=== PATIENT | male | born 1940 | race Caucasian/White ===

== ENCOUNTER → 2018-05-07 | Outpatient (CLI) | payer MEDICARE | END | disposition home or self-care (01) | LOC: SHCH 10:00 | PROVIDERS: ATTEND Internal Medicine Cardiovascular Disease | DX: I73.9 Peripheral vascular disease, unspecified (principal) | CPT/HCPCS: 93925 ==

== ENCOUNTER 2021-03-03 09:00 | Inpatient (IN) | payer MEDICARE ==
[~2021-03-03] VITALS: Ht 175.3 cm; Wt 93.2 kg
[2021-03-03 11:30] LABS: BASOPHILS % (AUTO) 0.4 % (0.0-5.0); HEMATOCRIT 36.8 % (42-54); MEAN CORPUSCULAR HEMOGLOBIN 31.6 pg (27.0-33.0); MEAN CORPUSCULAR VOLUME 92.9 fL (79-99); NEUTROPHILS % (AUTO) 69.3 % (40.0-77.0); PLATELET COUNT (AUTO) 173 K/uL (130-400); RED BLOOD CELL COUNT(AUTO) 3.96 MIL/uL (4.50-6.20); RED CELL DISTRIBUTION WIDTH 12.2 % (11.0-15.5); WHITE BLOOD COUNT (AUTO) 6.8 K/uL (4.8-10.8)
[2021-03-03 11:32] LABS: APPEARANCE,URINE CLEAR (CLEAR); BILIRUBIN,URINE NEGATIVE (NEGATIVE); COLOR,URINE YELLOW (YELLOW); GLUCOSE, URINE (UA) NEGATIVE (NEGATIVE); KETONES,URINE 5 mg/dL (NEGATIVE); LEUKOCYTE ESTERASE ,URINE NEGATIVE (NEGATIVE); NITRATE,URINE NEGATIVE (NEGATIVE); OCCULT BLOOD,URINE NEGATIVE (NEGATIVE); PH,URINE 5.5 (5.0-8.0); PROTEIN,URINE NEGATIVE (NEGATIVE); UROBILINOGEN,URINE 0.2 mg/dL (0.2-1.0)
[2021-03-03 11:40] LABS: CREATININE 1.4 mg/dL (0.5-1.5); POTASSIUM 4.6 mmol/L (3.5-5.1)
[2021-03-03 11:50] LABS: BACTERIA,URINE Rare /HPF (None Seen); RBC,URINE 0-1 /HPF (0-1); SQUAMOUS EPITHELIAL CELL,UR Rare /HPF (0-2); WBC,URINE 0-1 /HPF (0-1); YEAST,URINE BUDDING Rare /HPF (None Seen)
[2021-03-03 11:51] LABS: INR 0.99 (0.85-1.15); PROTHROMBIN TIME 10.8 SEC (9.6-11.6)
[2021-03-04 09:08] VITALS: BP 158/82
[2021-03-04] MEDS ORDERED: LISI10TA24 PO (10:08)
[2021-03-04] MEDS ORDERED: LOVA20TA3 PO (10:08)
[2021-03-04] MEDS ORDERED: METF-446 PO (10:08)
[2021-03-04] MEDS ORDERED: DICY20TA3 PO (10:08)
[2021-03-04] MEDS ORDERED: PROP80TA4 PO (10:08)
[2021-03-04] MEDS ORDERED: NAPR-1023 PO (10:08)
[2021-03-04] MEDS ORDERED: TRAM50TA4 PO (10:08)
[2021-03-04] MEDS ORDERED: ESOM40CA54 PO (10:08)
[2021-03-04] MEDS ORDERED: SENNA PO (10:08)
[2021-03-04] MEDS ORDERED: GABA300C PO (10:08)
[2021-03-04] MEDS ORDERED: SITA100T12 PO (10:08)
[2021-03-04] MEDS ORDERED: GLIP10TA9 PO (10:08)
[2021-03-07] VITALS (24 sets, daily range): BP systolic 111–141; BP diastolic 45–75
[2021-03-07] MEDS ORDERED: 0.9%NACL 1000ML 1,000 ML IV ONE (08:10)
[2021-03-07] MEDS: CEFAZOLIN SODIUM 1 GM VIAL IVP ONE ×2 (08:57→11:00)
[2021-03-07] MEDS ORDERED: LIDOCAINE PF 100MG/5ML (2%) SYRINGE 5ML ONE (09:43)
[2021-03-07] MEDS ORDERED: SUCCINYLCHOLINE CHLORIDE 20 MG/ML 10 ML VIAL ONE (09:43)
[2021-03-07] MEDS ORDERED: ROCURONIUM 10MG/1ML SYR 10 MG/ML ML ONE ×2 (09:43→11:53)
[2021-03-07] MEDS ORDERED: PROPOFOL 10 MG/ML 20ML VIAL IV ONE (09:43)
[2021-03-07] MEDS ORDERED: ACETAMINOPHEN 500 MG TABLET ONE (09:53)
[2021-03-07] MEDS ORDERED: KETOROLAC 15MG/ML VIAL (15MG/ML) ONE (09:53)
[2021-03-07] MEDS ORDERED: CELECOXIB 200 MG CAP ONE (09:54)
[2021-03-07] MEDS ORDERED: TRANEXAMIC ACID 1000MG/10ML ONE ×2 (10:36→13:37)
[2021-03-07] MEDS ORDERED: CEFAZOLIN SODIUM 1 GM VIAL ONE (10:36)
[2021-03-07] MEDS ORDERED: PHENYLEPHRINE HCL 10 MG/ML 1ML VIAL IV ONE (10:50)
[2021-03-07] MEDS ORDERED: GLYCOPYRROLATE 1 MG/5 ML SYRINGE ONE (11:05)
[2021-03-07] MEDS ORDERED: NEOSTIGMINE 5MG/5ML SYR IV ONE (11:05)
[2021-03-07] MEDS ORDERED: ONDANSETRON 4MG INJ ONE (12:52)
[2021-03-07] MEDS ORDERED: TEMAZEPAM 15 MG CAPSULE PO PRN (13:30)
[2021-03-07] MEDS ORDERED: CALCIUM CARB 500MG PO PRN (13:30)
[2021-03-07] MEDS: 0.9%NACL 1000ML 1,000 ML IV SCH ×2 (13:30→23:57)
[2021-03-07] MEDS ORDERED: POTASSIUM CHLORIDE 20MEQ/100ML 100 ML IV PRN (13:30)
[2021-03-07] MEDS ORDERED: DiphenhydrAMINE HCL 50 MG/ML VIAL IVP PRN (13:30)
[2021-03-07] MEDS ORDERED: LIDOCAINE HCL-MPF 1% 2ML VIAL IV PRN (13:30)
[2021-03-07] MEDS ORDERED: POTASSIUM CHLORIDE 10% ELIXIR 20 MEQ/15 ML UDCUP PO PRN (13:30)
[2021-03-07] MEDS ORDERED: FERROUS FUMARATE 324 MG TABLET PO PRN (13:30)
[2021-03-07] MEDS ORDERED: KCL 20 MEQ ERTAB PO PRN (13:30)
[2021-03-07] MEDS ORDERED: KETOROLAC 15MG/ML VIAL (15MG/ML) IV PRN (13:30)
[2021-03-07] MEDS ORDERED: ONDANSETRON 4MG INJ IVP PRN (13:30)
[2021-03-07] MEDS ORDERED: TRAMADOL HCL 50 MG TABLET PO PRN (13:30)
[2021-03-07] MEDS: ACETAMINOPHEN 500 MG TABLET PO SCH ×2 (13:30→21:22)
[2021-03-07] MEDS: OXYCODONE HCL 5 MG TAB PO PRN ×2 (16:22→23:56)
[2021-03-07] MEDS: INSULIN HUMULIN R 100 UNIT/ML 3ML SQ SCH ×2 (16:23→21:00)
[2021-03-07] MEDS: CEFAZOLIN SODIUM 1 GM VIAL IVP SCH (18:45)
[2021-03-07] MEDS ORDERED: DICYCLOMINE HCL 20 MG TAB PO PRN (20:15)
[2021-03-07] MEDS ORDERED: NON-FORMULARY MEDICATION 1 EACH (Metformin HCl 1,000 MG) PO SCH (21:00)
[2021-03-07] MEDS ORDERED: PROPRANOLOL HCL 80 MG PO SCH (21:00)
[2021-03-07] MEDS ORDERED: SENNA PO SCH (21:00)
[2021-03-07] MEDS: SENNA PO SCH (21:00)
[2021-03-07] MEDS: LOVASTATIN 20 MG PO SCH (21:00)
[2021-03-07] MEDS ORDERED: NON-FORMULARY MEDICATION 1 EACH (Glipizide 10 MG) PO SCH (21:00)
[2021-03-07] MEDS ORDERED: NON-FORMULARY MEDICATION 1 EACH (Lovastatin 20 MG) PO SCH (21:00)
[2021-03-07] MEDS: LISINOPRIL 10 MG TABLET PO SCH (21:22)
[2021-03-07] MEDS: GLIPIZIDE 5 MG TABLET PO SCH (21:23)
[2021-03-07] MEDS: ASPIRIN 81MG CHEW TAB PO SCH (21:24)
[2021-03-07] MEDS: CELECOXIB 200 MG CAP PO SCH (21:24)
[2021-03-07] MEDS: GABAPENTIN 300 MG CAPSULE PO SCH (21:25)
[2021-03-07] MEDS: PROPRANOLOL HCL 20 MG TAB PO SCH (21:25)
[2021-03-07] MEDS: TRAMADOL HCL 50 MG TABLET PO SCH (21:26)
[2021-03-08] MEDS: CEFAZOLIN SODIUM 1 GM VIAL IVP SCH (03:36)
[2021-03-08 03:46] VITALS: BP 118/66
[2021-03-08 04:23] LABS: HEMATOCRIT 26.7 % (42-54); MEAN CORPUSCULAR HEMOGLOBIN 32.5 pg (27.0-33.0); MEAN CORPUSCULAR HGB CONC 35.2 g/dL (32.0-36.0); MEAN CORPUSCULAR VOLUME 92.4 fL (79-99); RED BLOOD CELL COUNT(AUTO) 2.89 MIL/uL (4.50-6.20); RED CELL DISTRIBUTION WIDTH 12.2 % (11.0-15.5); WHITE BLOOD COUNT (AUTO) 8.2 K/uL (4.8-10.8)
[2021-03-08 04:31] LABS: CREATININE 1.6 mg/dL (0.5-1.5); POTASSIUM 4.2 mmol/L (3.5-5.1)
[2021-03-08] MEDS: INSULIN HUMULIN R 100 UNIT/ML 3ML SQ SCH ×4 (06:07→21:43)
[2021-03-08] MEDS: ACETAMINOPHEN 500 MG TABLET PO SCH ×3 (06:11→21:35)
[2021-03-08] MEDS: OXYCODONE HCL 5 MG TAB PO PRN ×3 (06:13→18:06)
[2021-03-08 07:00] VITALS: BP 113/61
[2021-03-08] MEDS: 0.9%NACL 1000ML 1,000 ML IV SCH (07:31)
[2021-03-08] MEDS: TRAMADOL HCL 50 MG TABLET PO SCH ×2 (07:32→21:35)
[2021-03-08] MEDS: POLYETHYLENE GLYCOL 3350 17 GM POWD.PACK PO SCH (08:42)
[2021-03-08] MEDS: PANTOPRAZOLE 40 MG TAB DR PO SCH (08:42)
[2021-03-08] MEDS: METFORMIN HCL 500 MG TABLET PO SCH ×2 (08:42→17:31)
[2021-03-08] MEDS: CELECOXIB 200 MG CAP PO SCH ×2 (08:43→21:34)
[2021-03-08] MEDS: TAMSULOSIN HCL 0.4 MG CAP.ER.24H PO SCH (08:43)
[2021-03-08] MEDS: ASPIRIN 81MG CHEW TAB PO SCH ×2 (08:43→21:36)
[2021-03-08] MEDS: GLIPIZIDE 5 MG TABLET PO SCH ×2 (08:44→21:36)
[2021-03-08] MEDS ORDERED: NON-FORMULARY MEDICATION 1 EACH (Esomeprazole Magnesium 40 MG) PO SCH (09:00)
[2021-03-08] MEDS ORDERED: NON-FORMULARY MEDICATION 1 EACH (Sitagliptin Phosphate (Januvia) 100 MG) PO SCH (09:00)
[2021-03-08 13:08] VITALS: BP 121/74
[2021-03-08 16:53] VITALS: BP 135/89
[2021-03-08 19:53] VITALS: BP 129/80
[2021-03-08] MEDS: SENNA PO SCH (21:00)
[2021-03-08] MEDS: LOVASTATIN 20 MG PO SCH (21:00)
[2021-03-08] MEDS: LISINOPRIL 10 MG TABLET PO SCH (21:35)
[2021-03-08] MEDS: GABAPENTIN 300 MG CAPSULE PO SCH (21:35)
[2021-03-08] MEDS: PROPRANOLOL HCL 20 MG TAB PO SCH (21:36)
[2021-03-09 00:06] VITALS: BP 141/75
[2021-03-09 04:06] VITALS: BP 140/80
[2021-03-09] MEDS: INSULIN HUMULIN R 100 UNIT/ML 3ML SQ SCH ×3 (05:56→16:30)
[2021-03-09] MEDS: ACETAMINOPHEN 500 MG TABLET PO SCH ×2 (05:57→13:03)
[2021-03-09] MEDS: OXYCODONE HCL 5 MG TAB PO PRN ×2 (07:34→13:02)
[2021-03-09] MEDS: METFORMIN HCL 500 MG TABLET PO SCH ×2 (07:34→16:43)
[2021-03-09] MEDS ORDERED: BISACODYL 10 MG SUPP.RECT RC SCH (07:45)
[2021-03-09] MEDS ORDERED: CALCIUM CARB 500MG CHEW TAB PO SCH (07:45)
[2021-03-09 07:52] VITALS: BP 143/75
[2021-03-09] MEDS ORDERED: MAG/ALUM/SIMETH 30 ML UDCUP ONE (08:54)
[2021-03-09] MEDS ORDERED: MAG/ALUM/SIMETH 30 ML UDCUP PO SCH (09:00)
[2021-03-09] MEDS: TRAMADOL HCL 50 MG TABLET PO SCH (09:00)
[2021-03-09] MEDS: PANTOPRAZOLE 40 MG TAB DR PO SCH (09:01)
[2021-03-09] MEDS: ASPIRIN 81MG CHEW TAB PO SCH (09:01)
[2021-03-09] MEDS: CELECOXIB 200 MG CAP PO SCH (09:01)
[2021-03-09] MEDS: POLYETHYLENE GLYCOL 3350 17 GM POWD.PACK PO SCH (09:02)
[2021-03-09] MEDS: TAMSULOSIN HCL 0.4 MG CAP.ER.24H PO SCH (09:02)
[2021-03-09] MEDS: GLIPIZIDE 5 MG TABLET PO SCH ×2 (09:02→16:42)
[2021-03-09 11:46] VITALS: BP 133/84
[2021-03-09 16:15] VITALS: BP 129/69
[2021-03-09] MEDS ORDERED: ASPI-1005 PO (17:27)
[2021-03-09] MEDS ORDERED: HYDR-4060 PO (17:27)
[2021-03-10] MEDS ORDERED: BISACODYL 10 MG SUPP.RECT RC PRN (13:30)
== END 2021-03-09 18:45 | disposition home health service (06) | DRG 470 ==
LOC: EDSTATUS 09:00 → OBSVTOIN 03-07 07:22 → INTOOBSV 03-07 07:22 → DAHIP 03-07 07:22 → 4AH 03-07 14:31
PROVIDERS: ADMIT Orthopaedic Surgery; ATTEND Orthopaedic Surgery
PROC: 3E0T33Z Introduction of Anti-inflammatory into Peripheral Nerves and Plexi, Percutaneous Approach (ICD-10-PCS; 2021-03-07)
PROC: 0SRC0J9 Replacement of Right Knee Joint with Synthetic Substitute, Cemented, Open Approach (ICD-10-PCS; principal; 2021-03-07 09:50)
PROC: 3E0T3BZ Introduction of Anesthetic Agent into Peripheral Nerves and Plexi, Percutaneous Approach (ICD-10-PCS; 2021-03-07 09:50)
DX: M17.11 Unilateral primary osteoarthritis, right knee (principal); G89.29 Other chronic pain; E11.9 Type 2 diabetes mellitus without complications; E78.5 Hyperlipidemia, unspecified; I10 Essential (primary) hypertension; D64.9 Anemia, unspecified; R33.9 Retention of urine, unspecified; Z20.822 Contact with and (suspected) exposure to COVID-19; Z96.641 Presence of right artificial hip joint; Z96.652 Presence of left artificial knee joint; N40.0 Benign prostatic hyperplasia without lower urinary tract symptoms; Z80.9 Family history of malignant neoplasm, unspecified
CPT/HCPCS: 36415; 80048; 81001; 82948; 85025; 85027; 85610; 87641; 88305; 88311; 97039; A4344; G0378; J0330; J0690; J1815; J1885; J2001; J2370; J2405; J2704; J2710; J3490; J7030; U0003

== ENCOUNTER → 2023-10-11 | Outpatient (CLI) | payer MEDICARE ==
[~2023-10-11] MED LIST: ASPI-1005 PO; DICY20TA3 PO; ESOM40CA54 PO; GABA300C PO; GLIP10TA9 PO; HYDR-4060 PO; LISI10TA24 PO; LOVA20TA3 PO; METF-446 PO; PROP80TA4 PO; SENNA PO; SITA100T12 PO
== END | disposition home or self-care (01) ==
LOC: RAH 12:05
PROVIDERS: ATTEND Physician Assistant
DX: S69.81XA Other specified injuries of right wrist, hand and finger(s), initial encounter (principal); M25.531 Pain in right wrist; M18.11 Unilateral primary osteoarthritis of first carpometacarpal joint, right hand; X58.XXXA Exposure to other specified factors, initial encounter; Y93.89 Activity, other specified; Y92.89 Other specified places as the place of occurrence of the external cause; Y99.8 Other external cause status
CPT/HCPCS: 73100

== ENCOUNTER → 2024-05-20 | Outpatient (CLI) | payer MEDICARE ==
[~2024-05-20] MED LIST changes: -ESOM40CA54 PO; +ESOM40CA66 PO
== END | disposition home or self-care (01) ==
LOC: RAH 13:40
PROVIDERS: ATTEND Physical Medicine & Rehabilitation
DX: M48.04 Spinal stenosis, thoracic region (principal); R26.89 Other abnormalities of gait and mobility
CPT/HCPCS: 72070

== ENCOUNTER → 2024-05-30 | Outpatient (CLI) | payer MEDICARE ==
[~2024-05-30] MED LIST changes: +IOHEXOL 350 MG/ML 100ML INFUS..BTL IV ONE
== END | disposition home or self-care (01) ==
LOC: RAH 14:19
PROVIDERS: ATTEND Physical Medicine & Rehabilitation
DX: M54.14 Radiculopathy, thoracic region (principal); M48.04 Spinal stenosis, thoracic region
CPT/HCPCS: 72130; Q9967

== ENCOUNTER → 2024-12-17 | Outpatient (CLI) | payer MEDICARE ==
[~2024-12-17] MED LIST changes: +GLIP10TA16 PO; -GLIP10TA9 PO; -IOHEXOL 350 MG/ML 100ML INFUS..BTL IV ONE
--- NOTE | 2024-12-17 11:38 | EKG ---
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
--- NOTE | 2024-12-17 11:41 | HMCIMG ---
PA AND LATERAL CHEST RADIOGRAPH INDICATION: Aquired abscence of other; preoperative evaluation COMPARISON: None FINDINGS: Heart size is normal. The pulmonary vascularity and kaylen appear normal. No abnormal pulmonary parenchymal opacity or consolidation identified. No significant pleural effusion noted. No pneumothorax detected. IMPRESSION: No radiographic evidence for any acute cardiopulmonary process.
== END | disposition home or self-care (01) ==
LOC: LAB 10:52
PROVIDERS: ATTEND Physician Assistant Medical
DX: Z01.818 Encounter for other preprocedural examination (principal); Z90.79 Acquired absence of other genital organ(s)
CPT/HCPCS: 71046; 93005

== ENCOUNTER → 2025-07-06 | Outpatient (CLI) | payer MEDICARE ==
--- NOTE | 2025-07-06 22:24 | HMCIMG ---
EXAM: CR Cervical spine, 6 views. CLINICAL HISTORY: Cervicalgia. COMPARISON: Prior cervical spine radiograph dated 26 July 2021. FINDINGS: Mild osteopenia. Levoscoliosis of the cervical spine. Multilevel uncinate process hypertrophy and facet arthropathy from the C4-C7 level. Moderate to severe narrowing of the left neural foramina at the C3-C4 level and moderate narrowing of the neural foramina at the C4-C5 and C5-C6 levels are more prominent on the left side???mild degenerative reduction in disc space at the C5-C6 and C6-C7 levels. Flexion-extension views do not demonstrate instability. Normal vertebral body heights. No acute fracture. The prevertebral soft tissues are within normal limits. The included lungs are clear. 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 IMPRESSION: No acute bony changes. Mild osteopenia. Levoscoliosis of the cervical spine. Moderate to severe degenerative changes in the cervical spine. Flexion-extension views do not demonstrate any instability. Compared to the prior study, again identified multilevel severe degenerative changes in the cervical spine as described. /[place]
--- NOTE | 2025-07-06 22:25 | HMCIMG ---
EXAM: CR right Shoulder, 3 views. CLINICAL HISTORY: Pain in the right shoulder. COMPARISON: None provided. FINDINGS: Mild osteopenia. Mild to moderate degenerative changes in the right acromioclavicular and glenohumeral joint. Curvilinear calcification in the region of the distal supraspinatus tendon is consistent with calcific tendinopathy. No acute fracture or aggressive appearing osseous lesion. The soft tissues are unremarkable. IMPRESSION: No acute bony changes. Mild osteopenia. Mild to moderate degenerative changes in the right acromioclavicular and glenohumeral joint. Curvilinear calcification in the region of the distal supraspinatus tendon is consistent with calcific tendinopathy. /[place]
--- NOTE | 2025-07-06 22:25 | HMCIMG ---
EXAM: CR left Shoulder, 3 views. CLINICAL HISTORY: Pain in left shoulder. COMPARISON: None provided. FINDINGS: Mild osteopenia. Moderate degenerative changes in the left acromioclavicular and glenohumeral joints. No acute fracture or aggressive appearing osseous lesion. The soft tissues are unremarkable. IMPRESSION: No acute bony changes. Mild osteopenia. Moderate degenerative changes in the left acromioclavicular and glenohumeral joints. /[place]
== END | disposition home or self-care (01) ==
LOC: RAH 10:39
PROVIDERS: ATTEND Physical Medicine & Rehabilitation
DX: M47.812 Spondylosis without myelopathy or radiculopathy, cervical region (principal); M19.012 Primary osteoarthritis, left shoulder; M19.011 Primary osteoarthritis, right shoulder; M50.322 Other cervical disc degeneration at C5-C6 level; M50.323 Other cervical disc degeneration at C6-C7 level; M41.82 Other forms of scoliosis, cervical region; M85.89 Other specified disorders of bone density and structure, multiple sites; M25.811 Other specified joint disorders, right shoulder; M48.02 Spinal stenosis, cervical region; M25.511 Pain in right shoulder; M25.512 Pain in left shoulder
CPT/HCPCS: 72050; 73030